=== PATIENT | male | born 1955 | race Caucasian/White ===

== ENCOUNTER 2017-11-19 13:08 | Day surgery (SDC) | payer MEDICAID ==
[~2017-11-19] VITALS: Ht 184.2 cm; Wt 83.6 kg
[~2017-11-19 13:08] MED LIST: DICY20TA33 PO; GLIP5TAB13 PO; METF1000 PO
[2017-11-19 13:15] VITALS: BP 101/72
[2017-11-19] MEDS ORDERED: GLIP10TA11 PO (13:19)
[2017-11-19] MEDS ORDERED: ASPI-1265 PO (13:20)
[2017-11-19] MEDS ORDERED: LISI10TA4 PO (13:20)
[2017-11-19] MEDS ORDERED: HYDR12.55 PO (13:21)
[2017-11-19] MEDS ORDERED: MIDAZolam 5mg/5ml vial ONE (13:28)
[2017-11-19] MEDS ORDERED: fentaNYL/PF 50MCG/1 ML 2ML syringe ONE (13:28)
[2017-11-19 14:28] VITALS: BP 92/66
[2017-11-19 14:38] VITALS: BP 103/69
[2017-11-19 14:48] VITALS: BP 100/72
[2017-11-19 14:58] VITALS: BP 106/71
== END 2017-11-19 15:20 | disposition home or self-care (01) ==
LOC: GI LAB 13:08
PROVIDERS: ATTEND Internal Medicine Gastroenterology
DX: K57.30 Diverticulosis of large intestine without perforation or abscess without bleeding (principal); K64.8 Other hemorrhoids; K52.89 Other specified noninfective gastroenteritis and colitis; E11.9 Type 2 diabetes mellitus without complications; Z86.010 Personal history of colon polyps; Z79.82 Long term (current) use of aspirin; Z85.828 Personal history of other malignant neoplasm of skin; Z79.899 Other long term (current) drug therapy; Z98.890 Other specified postprocedural states
CPT/HCPCS: 45380; 99152; J2250; J3010; J7030; A4620; G0500